=== PATIENT | female | born 2000 | race Caucasian/White ===

== ENCOUNTER 2023-11-11 23:43 | Emergency (ER) | payer OTHER, SELFPAY ==
[2023-11-11 23:45] VITALS: PULSE 78
[2023-11-11 23:54] VITALS: BP 124/66; PULSE 92; RESP 16; TEMP 36.7; O2SAT 100
--- NOTE | 2023-11-12 00:04 | CRLHL7_ITS ---
For Patients: As a result of the Century Cures Act, medical imaging exams and procedure reports are released immediately into your electronic medical record. You may view this report before your referring provider. If you have questions, please contact your health care provider. INDICATION: Fall injury to ankle TECHNIQUE: Ankle radiograph 3 views left COMPARISON: None FINDINGS: Bone: On the lateral view, the dorsal distal cortex of the talus is poorly defined with a small adjacent osseous density. Joint: The ankle mortise joint and the visualized hindfoot joints are unremarkable in appearance. No significant ankle effusion is seen. Soft tissue: The Kager fat pad and the Achilles` tendon are normal in appearance. No radiopaque foreign bodies are seen. IMPRESSION: 1. On the lateral view, the dorsal distal cortex of the talus is poorly defined with a small adjacent osseous density. Correlation with physical exam for focal tenderness in this region is recommended to exclude an avulsion fracture. Dictated by Ruddy Chris MD @ 11/12/2023 12:33:14 AM Dictated by: Ruddy Chris MD @ 11/12/2023 00:33:20 (Electronically Signed)
--- NOTE | 2023-11-12 00:34 | ED.GENADULT ---
HPI - General Adult General Chief complaint: Extremity Pain/Injury, Lower Stated complaint: sprained L ankle, fell down stairs 2 to 5 steps Time Seen by Provider: 11/12/23 00:13 Source: patient Mode of arrival: wheelchair Limitations: no limitations History of Present Illness HPI narrative: 22-year-old female presents the emergency department for evaluation of left ankle pain after falling down about 5 stairs. Uncertain if it was an inversion or eversion type of injury. Pain is at the lateral forefoot just distal to the lateral malleolus. There is an area of swelling there. No other areas of pain. Reports that she cannot bear weight. Prior history of fracture about 10-11 years ago that did not require surgery. Did not hit head, no anticoagulant use. Has not taken any medication for the pain. Pain is worse with movement of the ankle. No pain at the medial malleolus, base of the 5th metatarsal or any toes. No other joints affected. Says her past medical history is benign. Allergies to Demerol and morphine. Home med Prozac. ROS is negative for other generalized, musculoskeletal, neurological or skin changes. Related Data Home Medications ?Medication ?Instructions ?Recorded ?Confirmed fluoxetine .ROUTE 11/11/23 Allergies Allergy/AdvReac Type Severity Reaction Status Date / Time meperidine [From Demerol] AdvReac Verified 11/11/23 23:57 morphine AdvReac Verified 11/11/23 23:57 [facility] Medical History No significant past medical history Surgical History No significant past surgical history Social History Smoking Status: Never smoker Second hand tobacco smoke exposure: No How often do you have a drink containing alcohol: never AUDIT-C Alcohol total score: 0 Non-prescribed substance use: denies use Exam Const: Vital Signs, click to edit/add: Vital Signs - 24 hr 11/11/23 23:45 11/11/23 23:54 11/12/23 00:44 Temperature 98.1 F 98.1 F Pulse Rate [Left D orsalis Pedis] 78 Pulse Rate [Pulse Oximeter] 92 Respiratory Rate 16 Blood Pressure [Ri t Upper Arm] 124/66 Pulse Oximetry 100 Oxygen Delivery Me thod Room Air Documenting provider has reviewed patient's vital signs: yes Common normals: no apparent distress and alert General appearance: cooperative, comfortable and well kempt HENMT: Common normals: head/scalp atraumatic Head and scalp: atraumatic Face and sinus: normal facial exam Eye: General eye: normal appearance of both eyes Neck & C-Spine: General: normal visual inspection Resp: Common normals: normal respiratory effort Effort & inspection: able to speak in complete sentences GI: Other: 2+ dorsalis pedis pulses on left, regular rate and rhythm. Normal capillary refill Extremity: Other: Left knee with surgical scarring, old and well healed. Left leg without significant deformity. There is mild swelling just distal to the lateral malleolus on the forefoot in area patient describes pain. No significant deformity to the ankle. No point bony tenderness over the lateral malleolus, medial malleolus or base of the 5th metatarsal. All toes normal as well. Specifically there is no pain with palpation over the talus or area noted on x-ray that would be consistent with new avulsion fracture. Suspect this is related to her old fracture. Though tender, she does have normal range of motion and strength in all directions with the ankle. Normal sensation. Neuro: Sensorium/orientation: alert Speech: speech normal Motor exam: strength 5/5 throughout Psych: Appearance: well kempt Activity/motor behavior: appropriate eye contact Insight: insight good Judgement: judgment good Skin: Common normals: no rashes or lesions noted General skin exam: no rashes or lesions noted Course Course ED Course: Will give ibuprofen 600 mg p.o. x1. Concern for possible fracture, x-ray ordered prior to my interview with patient. The bony abnormality does not align with her pain. I suspect that that is from her old fracture and she has a new ankle sprain but no signs of severe ligamentous or tendon injury. Patient counseled on findings. Will place in air cast for 2 weeks, give crutches for the next few days. Instructed on proper foot wear. Tylenol 1000 mg every 6 hours as needed for pain, ibuprofen 600 q.6 as well. Follow-up if symptoms have not markedly improved in 10 days with Orthopedics for repeat imaging and or more advanced imaging. Alarm symptoms reviewed. All questions answered. See discharge instructions. Vital Signs Vital signs: Initial Vital Signs Pulse Rate 78 11/11/23 23:45 Vital Signs Pulse Rate 78 11/11/23 23:45 Temperature 98.1 F 11/12/23 00:44 Pulse Rate 92 11/11/23 23:54 Respiratory Rate 16 11/11/23 23:54 Blood Pressure 124/66 11/11/23 23:54 Pulse Oximetry 100 11/11/23 23:54 Oxygen Delivery Method Room Air 11/11/23 23:54 Medications Administered Medications: Discontinued Medications Generic Name Dose Route Start Last Admin Trade Name Chon PRN Reason Stop Dose Admin Ibuprofen 600 mg 11/12/23 00:30 11/12/23 00:44 Ibuprofen 200 Mg Tablet PO 11/12/23 00:31 600 mg ONCE ONE Administration Discharge Plan Discharge Instructions: Ankle Sprain (ED) Additional Instructions: As we discussed, there is a slight abnormality on your x-ray but it seems more consistent with your old fracture than any part of a new injury. This looks like a nasty ankle sprain but this should heal with no complications. Pain typically is bothersome for about 2 weeks. It should be markedly better in about 3 days. I would recommend use the crutches for the next 2-3 days as needed until the pain improves. Once you are able to bear weight based on your level of pain, you may wean off of the crutches. For pain control, recommend Tylenol 1000 mg every 6 hours and or ibuprofen 6 are mg every 6 hours. Things should be markedly better in 2 weeks. If things have not improved markedly, I would recommend a follow-up with your primary care provider or an orthopedist for re-evaluation. It would be a good idea to wear a soft ankle support for a couple of more weeks even after you have weaned out of the ankle brace for additional support. Unfortunately, we are out of the ideal ankle brace for your injury. I have provided an [employer] printout of a better option. There are many that are quite similar to this. The gel/air ankle stirrup, size medium recommended. If you would like to order 1 of these, it would be a better brace for you. Sometimes these can be found locally but require a lot of running around to find them. Often, ordering them is fastest. Activity Level: Activity as Tolerated Discharge Diet: Regular Prescriptions: No Action fluoxetine [Prozac] .ROUTE Stand Alone Forms: [employer] Info Instructions
[2023-11-12 00:44] VITALS: TEMP 36.7
[2023-11-12] MEDS: IBUPROFEN 200 MG TABLET 600 MG PO (00:44)
[2023-11-12 01:33] VITALS: BP 118/70; PULSE 85; RESP 16; TEMP 36.7; O2SAT 100
== END 2023-11-12 01:33 | disposition home or self-care (01) ==
LOC: ED 11-12 00:41
PROVIDERS: Emergency Provider Family Medicine
DX: S93.402A Sprain of unspecified ligament of left ankle, initial encounter (principal); W10.9XXA Fall (on) (from) unspecified stairs and steps, initial encounter
CPT/HCPCS: 29515; 73610; 99283; A9270